=== PATIENT | male | born 1975 | race African-American/Black ===

== ENCOUNTER 2018-09-22 10:58 | Day surgery (SDC) | payer OTHER, BC ==
[2018-09-22] MEDS ORDERED: ONDANSETRON 4 MG INJ IV (14:30)
[2018-09-22] MEDS ORDERED: PROPOFOL 20 ML ×2 (14:31→14:58)
[2018-09-22] MEDS ORDERED: FENTAnyl 50 MCG/ML VIAL (14:31)
== END 2018-09-22 15:26 | disposition home or self-care (01) ==
LOC: GIL 10:58
DX: K29.50 Unspecified chronic gastritis without bleeding (principal); K64.8 Other hemorrhoids
CPT/HCPCS: 43239; 88305; 88312